=== PATIENT | male | born 1980 | race Caucasian/White ===

== ENCOUNTER → 2018-01-08 | Day surgery (SDC) | payer OTHER ==
[~2018-01-08] VITALS: Ht 182.9 cm; Wt 94.7 kg
[~2018-01-08] MED LIST: ACETAMINOPHEN 1000 MG/100 ML 100 ML IV ONE; ACETAMINOPHEN/HYDROcodone 325 MG/5 MG TAB PO PRN; BUPIVACAINE/EPINEPHRINE 0.25% PF 10 ML VIAL ONE; CHLORHEXIDINE GLUCONATE 2 % 1 PACK (2 CLOTHS) TOPICAL PRN; DEXAMETHASONE SOD PHOS 4 MG/ML VIAL IV ONE; DO NOT ADM ANY ANTICOAGULANT DRUGS PRN; HYDROmorphone HCL PF 2 MG/ML VIAL ONE; LACTATED RINGER'S 1000 ML IV PRN; LIDOCAINE HCL 1% PF 5 ML SYRINGE OTHER ONE; METOPROLOL TARTRATE 25 MG TAB PO PRN; NALOXONE HCL 0.4 MG/ML AMP ONE; ONDANSETRON HCL 4 MG/2 ML VIAL IV ONE; ONDANSETRON HCL 4 MG/2 ML VIAL IV PUSH PRN; POVIDONE IODINE 5% (ANTISEPSIS KIT) 4 APPLICATIONS EACH NARE PRN; PROPOFOL 200 MG/20 ML AMP IV ONE; PROT40TA PO; ROCURONIUM INJ 50 MG/5 ML SYRINGE IV PUSH ONE; SODIUM CHLORID 0.9% 500 ML IV PRN; SUGAMMADEX SODIUM 200 MG/2 ML VIAL IV PUSH ONE; ceFAZolin 2 GM PREMIX 50 ML IV SCH
--- NOTE | 2018-01-08 10:18 | PD.OP ---
Operative Report Date of Surgery: Jan 08, 2018 Preoperative Diagnosis: hiatal hernia, GERD Postoperative Diagnosis: same Procedure: lap repair HH with Sukhwinder Fundoplication Anesthesia: general Surgeon: Jordy Senra Web Development Instructor(s): Fabian Styles, MS3 Operation and Findings: 3cm hiatal hernia. Esophageal diameter too large for biggest size Linx. Fundoplication over 48 lao bougie. EBL less than 5 ml. Jordy Serna MD Jan 08, 2018 10:18
[2018-01-08 11:50] VITALS: BP 145/94; PULSE 86; RESP 18; TEMP 97.9; O2SAT 97
--- NOTE | 2018-01-10 08:36 | MP ---
cc: MARLYS CHOI M.D., KETUL R. MD FREDETTE-HUFFMAN, PATRICIA DATE OF SURGERY: 01/10/2018. PREOPERATIVE DIAGNOSIS: 1. Hiatal hernia. 2. Gastroesophageal reflux disease. POSTOPERATIVE DIAGNOSIS 1. Hiatal hernia. 2. Gastroesophageal reflux disease. OPERATIVE PROCEDURE PERFORMED: Laparoscopic repair hiatal hernia with Sukhwinder fundoplication. SURGEON: Dr. Marlys Choi CELLOPHANE WORKER SURGEON: Dr. Fabian Woodall SECOND CELLOPHANE WORKER: Olga Styles, MS III. ANESTHESIA: General. INDICATIONS FOR THE PROCEDURE: Very pleasant 37-year-old gentleman who has suffered from severe gastroesophageal reflux disease with esophagitis. He has been on proton pump inhibitors and would like to come off. He is interested in placement of the LINX device with repair of hiatal hernia. INTRAOPERATIVE FINDINGS: About a 3-cm hiatal hernia defect. Esophageal diameter too large for the biggest size LINX. Procedure converted from LINX to a Sukhwinder fundoplication which was performed over a 48 [place] Bougie. ESTIMATED BLOOD LOSS: Less than 5 mL. DESCRIPTION OF THE PROCEDURE IN DETAIL: The patient was identified as Marlys Ayoub, taken to the operating room and placed in the supine position. Sequential compression devices were placed on bilateral lower extremities. Following induction of adequate general endotracheal anesthesia, the patient's abdomen was prepped and draped in the usual sterile fashion with Chloraprep. A time-out procedure was performed. Following completion of the time-out procedure everyone's satisfaction within the room, local anesthetic was placed at each incision site. An incision vertical about 3 cm in length was carried out in the supraumbilical midline and dissection continued posteriorly to the level of the midline fascia. The fascia was incised with a scalpel and entry into the peritoneal cavity was facilitated with the surgeon's finger. The [employer] balloon Cardoso trocar was placed in the peritoneal cavity its balloon inflated to C02 insufflation to a level of 15 mmHg ensued. Four upper abdominal 5 mm trocars were placed into the peritoneal cavity under direct laparoscopic view after incision in the skin with a scalpel. The Jessica-Flex liver retractor was placed beneath the left lateral lobe of the liver and held anteriorly using the retractor with a robot arm. The skin was padded with a laparotomy pad beneath the trocar with the Jessica Flex liver retractor. Attention was turned first to taking down the gastrohepatic ligament. A window was created using the harmonic scalpel. The harmonic scalpel allowed for dissection of fatty tissue from the hiatal hernia defect reducing it down into the peritoneal cavity. Esophageal length was increased by releasing attachments in the mediastinum to the esophagus to allow the GE junction to be safely below the diaphragmatic crura. A posterior window was developed using the Harmonic scalpel. The posterior vagus nerve was identified and a window between the posterior vagus nerve and the esophagus was created using a [place] dissector. The 1/4 inch [place] drain was placed through this window. The LINX sizing device was then placed through this window and at the largest sized LINX measurement indentation into the esophagus occurred. Further mobilization of the esophagus was performed. The anterior vagus nerve was identified and a window was created behind the anterior vagus nerve. The sizing device was then placed between the anterior and posterior vagus nerves and the esophagus and sizing occurred again. Again, the largest size LINX at 17 created an indentation in the esophagus making placement of a LINX contraindicated. The sizing device was removed and conversion of the procedure to a Sukhwinder fundoplication was determined to be the right thing to do for the patient. The fundus of the stomach was then mobilized dividing the short gastric vessels and the fundus was brought through the posterior window above the gastroesophageal junction. Sequential placement of esophageal Bougies was then performed by the nurse time buyer placing a 36, 40, 44 and then 48 [place] Bougies. Attempts to place 50 and 52 [place] Bougies were unsuccessful as the nurse time buyer could not maneuver it from the mouth into the esophagus and therefore a 48 [place] Bougie was replaced and left in position. A 360 degree fundoplication was then performed using #0 Ethibond sutures and the suture clerical administrative assistant device and the upper two sutures taking full thickness stomach on either side of partial thickness anterior esophagus. The third suture placed was full thickness stomach to full thickness stomach. The Bougie was then removed without difficulty. A single suture was placed in the diaphragmatic crura performing a modified gastropexy in this location taking the posterior fundus of the stomach and suturing it to the diaphragmatic crura and closing the small hiatal hernia defect. Photographs were taken of the completed repair. Remaining local anesthetic was placed in the subdiaphragmatic position. The liver retractor was removed. There was no evidence of injury to the liver. Trocars were removed under direct visualization. There was no evidence of bleeding from the trocar sites. The abdomen was actively desufflated through the camera port which was then removed. The fascial incision of the camera port was closed with multiple interrupted inverted 0 Vicryl sutures. Port sites were irrigated with saline and skin incisions approximated with 4-0 Monocryl subcuticular sutures and dressed with Mastisol and half-inch brown Steri-Strips. The patient tolerated the procedure without apparent complication. Sponge, needle and instrument counts were correct at the end of the case. MD JAYLAN Skaggs/NICOLE /10:19 AM /7:52 AM
== END | disposition home or self-care (01) ==
LOC: HSDC 06:00 → EDSTATUS 08:30
PROVIDERS: ATTEND Surgery Trauma Surgery
DX: K44.9 Diaphragmatic hernia without obstruction or gangrene (principal); K21.9 Gastro-esophageal reflux disease without esophagitis
CPT/HCPCS: 00790; 43281; J0131; J0690; J1170; J2310; J2405; J3010; J7120; J1100